=== PATIENT | female | born 1990 | race African-American/Black ===

== ENCOUNTER 2021-07-29 16:02 | Inpatient (IN) ==
[2021-07-29] MEDS ORDERED: ceFAZolin 2,000 MG/50 ML DUPLEX IV ONE (16:11)
[2021-07-29] MEDS ORDERED: CITRIC ACID/SODIUM CITRATE 30 ML UDCUP PO ONE (16:11)
[2021-07-29] MEDS ORDERED: FAMOTIDINE 20 MG/2 ML VIAL IV ONE (16:11)
[2021-07-29] MEDS ORDERED: OXYTOCIN 10 UNIT/ML VIAL IM ONE (16:12)
[2021-07-29] MEDS ORDERED: OXYTOCIN/LR 20 UNIT/1,000 ML BAG IV ONE ×2 (16:12→19:30)
[2021-07-29] MEDS ORDERED: OXYTOCIN/LR 30 UNIT/1,000 ML BAG IV ONE (16:12)
[2021-07-29] MEDS: LACTATED RINGERS 1,000 ML IV SCH ×2 (16:15→18:10)
[2021-07-29 16:29] LABS: Basophils % 0.3 % (0.0-0.8); Eosinophils # 0.2 10*3/uL (0.0-0.87); Eosinophils % 1.8 % (0.00-10.9); Hematocrit 35.2 VOL% (35.7-47.0); Hemoglobin 11.3 GM/DL (12.0-16.0); Immature Granulocytes % 1.2 %; Immature Granulocytes Absolute 0.11 #; Lymphocytes # 1.7 10*3/uL (1.4-4.0); Lymphocytes % 17.9 % (21.3-54.2); Mean Corpuscular HGB Conc 32.1 GM/DL (32-36); Mean Corpuscular Volume 75.9 FL (87-102); Mean Platelet Volume 10.9 FL (9.6-12.0); Monocytes % 9.7 % (1.7-12.7); NRBC # 0.02 10*3/uL; Neutrophils % 69.1 % (38.7-73.9); Platelet Count 259 T/CUMM (130-400); Red Blood Count 4.64 MC/CUMM (3.8-5.5); Red Cell Distribution Width 17.6 % (9.3-17.3); White Blood Count 9.5 T/CUMM (4-12)
[2021-07-29] MEDS ORDERED: miSOPROStoL 200 MCG TABLET ONE (18:04)
[2021-07-29] MEDS ORDERED: CARBOPROST TROMETHAMINE 250 MCG/ML AMP IM ONE (18:05)
[2021-07-29] MEDS ORDERED: METHYLERGONOVINE 0.2 MG/1 ML AMP ONE (18:05)
[2021-07-29] MEDS ORDERED: BUPIVACAINE SPINAL 0.75% 2 ML AMP SPINAL ONE (18:24)
[2021-07-29 19:06] LABS: Cord Arterial Blood HCO3 26.1 MMOL/L
[2021-07-29 19:08] LABS: Cord Venous Blood PCO2 43.8 MMHG; Cord Venous Blood PO2 22.9
[2021-07-29] MEDS ORDERED: KETOROLAC 30 MG/1 ML VIAL ONE (19:10)
[2021-07-29] MEDS ORDERED: PHENYLEPHRINE 1 MG/10 ML SYRINGE IV ONE (19:10)
[2021-07-29] MEDS ORDERED: ACETAMINOPHEN INJ 1,000 MG/100 ML VIAL IV ONE (19:10)
[2021-07-29] MEDS ORDERED: ONDANSETRON 4 MG/2 ML VIAL ONE (19:10)
[2021-07-29] MEDS ORDERED: DEXAMETHASONE 4 MG/1 ML VIAL ONE (19:10)
[2021-07-29 19:19] LABS: Bacteria,Urine Occasional /HPF (Few); Bilirubin,Urine Negative (Negative); Blood, Urine Negative (Negative); Glucose,Urine (UA) Negative (Negative); Ketones,Urine 5 mg/dL (Negative); Mucus,Urine Occasional /LPF (Occasional); Nitrite,Urine Negative (Negative); Protein,Urine Negative; RBC,Urine <1 /HPF (0-4); Squamous Epithelial Cell,Urine Occasional /HPF (0-10); Urine Appearance CLEAR (Clear); Urine Color Straw (Yellow); Urine Specific Gravity 1.006 (1.001-1.035); Urine Urobilinogen < 2.0 EU/DL (<2.0)
[2021-07-29] MEDS ORDERED: SIMETHICONE CHEW 80 MG TABLET PO PRN (19:30)
[2021-07-29] MEDS ORDERED: LACTATED RINGERS 1,000 ML IV SCH (19:30)
[2021-07-29] MEDS ORDERED: RHO(D) IMMUNE GLOBULIN 300 MCG SYRINGE IM ONE (19:30)
[2021-07-29] MEDS ORDERED: ONDANSETRON 4 MG/2 ML VIAL IV PRN (19:30)
[2021-07-29] MEDS ORDERED: ACETAMINOPHEN 325 MG TABLET PO PRN (19:30)
[2021-07-29] MEDS: DOCUSATE SODIUM 100 MG CAPSULE PO SCH (21:55)
[2021-07-30] MEDS: KETOROLAC 30 MG/1 ML VIAL IV SCH ×3 (00:56→13:14)
[2021-07-30] MEDS: ACETAMINOPHEN 500 MG TABLET PO SCH ×3 (02:12→13:13)
[2021-07-30 05:46] LABS: Basophils % 0.1 % (0.0-0.8); Hematocrit 31.9 VOL% (35.7-47.0); Hemoglobin 10.1 GM/DL (12.0-16.0); Immature Granulocytes % 0.7 %; Immature Granulocytes Absolute 0.13 #; Lymphocytes # 1.1 10*3/uL (1.4-4.0); Lymphocytes % 5.7 % (21.3-54.2); Mean Corpuscular HGB Conc 31.7 GM/DL (32-36); Mean Corpuscular Volume 76.5 FL (87-102); Mean Platelet Volume 11.1 FL (9.6-12.0); Monocytes % 4.4 % (1.7-12.7); Neutrophils % 89.1 % (38.7-73.9); Platelet Count 241 T/CUMM (130-400); Red Blood Count 4.17 MC/CUMM (3.8-5.5); Red Cell Distribution Width 17.2 % (9.3-17.3); White Blood Count 19.6 T/CUMM (4-12)
[2021-07-30] MEDS: METOCLOPRAMIDE 10 MG TABLET PO SCH ×3 (08:30→23:29)
[2021-07-30] MEDS: MULTIVITAMIN (PRENATAL) TABLET PO SCH (08:30)
[2021-07-30] MEDS: DOCUSATE SODIUM 100 MG CAPSULE PO SCH ×2 (08:30→21:06)
[2021-07-30] MEDS: MAGNESIUM HYDROXIDE SUSP 30 ML UDCUP PO PRN ×2 (08:30→21:05)
[2021-07-30] MEDS: IBUPROFEN 800 MG TABLET PO PRN (23:31)
[2021-07-31] MEDS: MAGNESIUM HYDROXIDE SUSP 30 ML UDCUP PO PRN (07:40)
[2021-07-31] MEDS: METOCLOPRAMIDE 10 MG TABLET PO SCH (07:41)
[2021-07-31] MEDS: MULTIVITAMIN (PRENATAL) TABLET PO SCH ×2 (07:41→09:02)
[2021-07-31] MEDS: DOCUSATE SODIUM 100 MG CAPSULE PO SCH (07:41)
[2021-07-31] MEDS: IBUPROFEN 800 MG TABLET PO PRN (07:44)
[2021-07-31 08:20] VITALS: BP 129/81
[2021-07-31] MEDS ORDERED: INFLUENZA VIRUS VACCINE 0.5 ML SYRINGE IM ONE ×2 (09:30→16:41)
[2021-07-31] MEDS ORDERED: DIPH/TET/ACEL PERT BOOSTER VACCINE 0.5 ML VIAL IM ONE (09:50)
== END 2021-07-31 16:00 | disposition home or self-care (01) | DRG 539 ==
LOC: N.LDOUT 16:02 → N.LD 16:03 → N.OB 23:20
PROVIDERS: ADMIT Obstetrics & Gynecology; ATTEND Obstetrics & Gynecology